=== PATIENT | male | born 1990 | race Caucasian/White ===

== ENCOUNTER 2019-09-13 00:55 | Emergency (ER) | payer SELFPAY ==
[2019-09-13] MEDS ORDERED: Ketorolac 15 MG/ML SDV IVPUSH ONE (01:12)
[2019-09-13] MEDS ORDERED: Sodium Chloride 0.9% 2.5 ML Syringe FLUSH PRN (01:12)
[2019-09-13] MEDS ORDERED: Sodium Chloride 0.9% 1,000 ML IV ONE (01:12)
[2019-09-13] MEDS ORDERED: Sodium Chloride 0.9% 10 ML Syringe FLUSH PRN (01:12)
--- NOTE | 2019-09-13 01:16 | EDM.PDOC ---
ED HPI GENERAL MEDICAL PROBLEM - General Chief Complaint: Genitourinary Problem Stated Complaint: KIDNEY STONES Time Seen by Provider: 09/13/19 00:59 - History of Present Illness INITIAL COMMENTS - FREE TEXT/NARRATIVE: History of present illness: 29-year-old male presenting with left high flank/mid posterior thorax pain for the last few hours. No chest pain or difficulty breathing. No cough. No fever. Started at rest and has continued to worsen, now severe. No abdominal pain reported. No dysuria or urinary frequency although he did note when he went to the bathroom prior to coming in his urine appeared darker/more ye llow/more concentrated than usual. No trauma to the back. No heavy lifting. The patient did just recently fly here from [facility] with multiple connections 12 days ago. Review of systems: As per history of present illness and below otherwise all systems reviewed and negative. Past medical history: As per history of present illness and as reviewed below otherwise noncontributory. Cholesterol, not on any medication Surgical history: As per history of present illness and as reviewed below otherwise noncontributory. Social history: No reported history of drug abuse. Occasional alcohol. Daily tobacco. Family history: As per history of present illness and as reviewed below otherwise noncontributory. Physical exam: GEN: no acute distress, well appearing HEENT: Atraumatic, normocephalic, mucous membranes moist, Neck: supple, nontender, trachea midline. Lungs: No respiratory distress. Heart: RRR Abdomen: Soft, nondistended, nontender. Back: High left CVA/posterior rib tenderness. No crepitus. No midline tenderness. Extremities: Atraumatic. Neurovascularly intact. Neuro: Awake, alert, oriented. Neuro Exam nonfocal. Skin: warm, dry, no lesions Diagnostics: [] Therapeutics: [] MDM: Impression: [] Plan: [] Definitive disposition and diagnosis as appropriate pending reevaluation and review of above. Left Back Pain Score (Numeric/FACES): 7 - Related Data Allergies Allergy/AdvReac Type Severity Reaction Status Date / Time No Known Allergies Allergy Verified 09/13/19 01:08 Home Meds: Home Meds Amoxicillin/Potassium Clav [Augmentin 875-125 Tablet] 1 each PO BID #20 tablet 09/13/19 [Rx] Azithromycin [Zithromax] 250 mg PO DAILY #6 tab 09/13/19 [Rx] Ibuprofen 600 mg PO Q8H #30 tablet 09/13/19 [Rx] ED ROS GENERAL - Review of Systems Review Of Systems: See Below (See HPI) ED EXAM, GENERAL - Physical Exam Exam: See Below (See HPI) EKG INTERPRETATION EKG Interpretation Comments: EKG performed at 1:20 AM, sinus rhythm, no acute ischemia, no STEMI. Interpreted by me Course - Vital Signs Text/Narrative:: Differential diagnosis: Flank pain, renal stone, UTI, pneumonia, ACS: Less likely. Low risk for PE/DVT, however patient did recently take long trip, travel from [facility]. D-dimer negative. Troponin negative. Labs unremarkable except for slightly elevated white count. CT angio of the chest was performed as well as CT abdomen/pelvis with IV contrast no pneumothorax, pulmonary embolism, dissection, or intra-abdominal pathology, however there was a focalized area of possibly inflammation/infiltrate versus lung mass in the left lower lobe/posterior thorax, consistent with the patient's location of pain. Per radiology recommendations, patient needs repeat CT scan in 3 months. Patient relatively low risk for mass/cancer etiology, however he is a heavy daily smoker. I did discuss all of this directly with the patient as well as the extreme importance of repeat CT scan within 3 months. He agrees to do so. Also after our discussion, he agrees to attempt to quit smoking. Patient has remained comfortable on multiple reassessments without any hypoxia. Stable for outpatient treatment. Last Recorded V/S: Last Vital Signs Temp 97.8 F 09/13/19 01:08 Pulse 81 09/13/19 01:08 Resp 20 09/13/19 01:08 BP 148/98 H 09/13/19 01:08 Pulse Ox 98 09/13/19 01:08 - Orders/Labs/Meds Orders: Active Orders 24 hr Category Date Time Status EKG Documentation Completion [RC] STAT Care 09/13/19 01:12 Active Sodium Chloride 0.9% [Saline Flush] Med 09/13/19 01:12 Active 10 ml FLUSH ASDIRECTED PRN Sodium Chloride 0.9% [Saline Flush] Med 09/13/19 01:12 Active 2.5 ml FLUSH ASDIRECTED PRN Saline Lock Insert [OM.PC] Stat Oth 09/13/19 01:12 Ordered Medication Orders Sodium Chloride (Saline Flush) 10 ml FLUSH ASDIRECTED PRN PRN Reason: Keep Vein Open Sodium Chloride (Saline Flush) 2.5 ml FLUSH ASDIRECTED PRN PRN Reason: Keep Vein Open Labs: Laboratory Tests 09/13/19 09/13/19 09/13/19 Range/Units 01:22 01:22 01:22 WBC 12.97 H (4.0-11.0) K/uL RBC 4.91 (4.50-5.90) M/uL Hgb 15.1 (13.0-17.0) g/dL Hct 42.9 (38.0-50.0) % MCV 87.4 (80.0-98.0) fL MCH 30.8 (27.0-32.0) pg MCHC 35.2 (31.0-37.0) g/dL RDW Std Deviation 38.8 (28.0-62.0) fl RDW Coeff of Alejandrina 12 (11.0-15.0) % Plt Count 221 (150-400) K/uL MPV 11.10 (7.40-12.00) fL Neut % (Auto) 67.5 (48.0-80.0) % Lymph % (Auto) 19.6 (16.0-40.0) % [place] % (Auto) 8.8 (0.0-15.0) % Eos % (Auto) 3.9 (0.0-7.0) % Baso % (Auto) 0.2 (0.0-1.5) % Neut # (Auto) 8.8 H (1.4-5.7) K/uL Lymph # (Auto) 2.5 H (0.6-2.4) K/uL [place] # (Auto) 1.1 H (0.0-0.8) K/uL Eos # (Auto) 0.5 (0.0-0.7) K/uL Baso # (Auto) 0.0 (0.0-0.1) K/uL D-Dimer, Quantitative 0.27 (0.0-0.50) mg/L FEU Sodium 139 (136-148) mmol/L Potassium 3.2 L (3.5-5.1) mmol/L Chloride 100 (98-107) mmol/L Carbon Dioxide 28.0 (21.0-32.0) mmol/L BUN 16 (7.0-18.0) mg/dL Creatinine 0.9 (0.8-1.3) mg/dL Est Cr Clr Drug Dosing 108.30 mL/min Estimated GFR (MDRD) > 60.0 ml/min Glucose 108 H (74-106) mg/dL Calcium 9.3 (8.5-10.1) mg/dL Total Bilirubin 0.4 (0.2-1.0) mg/dL AST 21 (15-37) IU/L ALT 37 (14-63) IU/L Alkaline Phosphatase 135 H (46-116) U/L Troponin I (0.000-0.056) ng/mL Total Protein 7.7 (6.4-8.2) g/dL Albumin 4.3 (3.4-5.0) g/dL Globulin 3.4 (2.6-4.0) g/dL Albumin/Globulin Ratio 1.3 (0.9-1.6) Urine Color Urine Appearance Urine pH (5.0-8.0) Ur Specific [place] (1.001-1.035) Urine Protein (NEGATIVE) mg/dL Urine Glucose (UA) (NEGATIVE) mg/dL Urine Ketones (NEGATIVE) mg/dL Urine Occult Blood (NEGATIVE) Urine Nitrite (NEGATIVE) Urine Bilirubin (NEGATIVE) Urine Urobilinogen (<2.0) EU/dL Ur Leukocyte Esterase (NEGATIVE) 09/13/19 09/13/19 Range/Units 01:22 01:38 WBC (4.0-11.0) K/uL RBC (4.50-5.90) M/uL Hgb (13.0-17.0) g/dL Hct (38.0-50.0) % MCV (80.0-98.0) fL MCH (27.0-32.0) pg MCHC (31.0-37.0) g/dL RDW Std Deviation (28.0-62.0) fl RDW Coeff of Alejandrina (11.0-15.0) % Plt Count (150-400) K/uL MPV (7.40-12.00) fL Neut % (Auto) (48.0-80.0) % Lymph % (Auto) (16.0-40.0) % [place] % (Auto) (0.0-15.0) % Eos % (Auto) (0.0-7.0) % Baso % (Auto) (0.0-1.5) % Neut # (Auto) (1.4-5.7) K/uL Lymph # (Auto) (0.6-2.4) K/uL [place] # (Auto) (0.0-0.8) K/uL Eos # (Auto) (0.0-0.7) K/uL Baso # (Auto) (0.0-0.1) K/uL D-Dimer, Quantitative (0.0-0.50) mg/L FEU Sodium (136-148) mmol/L Potassium (3.5-5.1) mmol/L Chloride (98-107) mmol/L Carbon Dioxide (21.0-32.0) mmol/L BUN (7.0-18.0) mg/dL Creatinine (0.8-1.3) mg/dL Est Cr Clr Drug Dosing mL/min Estimated GFR (MDRD) ml/min Glucose (74-106) mg/dL Calcium (8.5-10.1) mg/dL Total Bilirubin (0.2-1.0) mg/dL AST (15-37) IU/L ALT (14-63) IU/L Alkaline Phosphatase (46-116) U/L Troponin I < 0.050 (0.000-0.056) ng/mL Total Protein (6.4-8.2) g/dL Albumin (3.4-5.0) g/dL Globulin (2.6-4.0) g/dL Albumin/Globulin Ratio (0.9-1.6) Urine Color YELLOW Urine Appearance CLOUDY Urine pH 7.5 (5.0-8.0) Ur Specific [place] 1.025 (1.001-1.035) Urine Protein NEGATIVE (NEGATIVE) mg/dL Urine Glucose (UA) NEGATIVE (NEGATIVE) mg/dL Urine Ketones TRACE H (NEGATIVE) mg/dL Urine Occult Blood NEGATIVE (NEGATIVE) Urine Nitrite NEGATIVE (NEGATIVE) Urine Bilirubin NEGATIVE (NEGATIVE) Urine Urobilinogen 0.2 (<2.0) EU/dL Ur Leukocyte Esterase NEGATIVE (NEGATIVE) Meds: Medications Generic Name Dose Route Start Last Admin Trade Name Freq PRN Reason Stop Dose Admin Sodium Chloride 10 ml 09/13/19 01:12 Saline Flush FLUSH ASDIRECTED PRN Keep Vein Open Sodium Chloride 2.5 ml 09/13/19 01:12 Saline Flush FLUSH ASDIRECTED PRN Keep Vein Open Discontinued Medications Generic Name Dose Route Start Last Admin Trade Name Dorian PRN Reason Stop Dose Admin Azithromycin 500 mg 09/13/19 03:28 09/13/19 03:47 Zithromax PO 09/13/19 03:29 500 mg ONETIME ONE Administration Sodium Chloride 1,000 mls @ 999 mls/hr 09/13/19 01:12 09/13/19 01:35 Normal Saline IV 09/13/19 02:12 999 mls/hr .Bolus ONE Administration Ceftriaxone Sodium/Dextrose 1 50 mls @ 100 mls/hr 09/13/19 03:28 09/13/19 03:47 gm/ Premix IV 09/13/19 03:57 100 mls/hr ONETIME ONE Administration Iopamidol 75 ml 09/13/19 03:22 09/13/19 03:24 Isovue-370 (76%) IVPUSH 09/13/19 03:23 75 ml ONETIME STA Administration Ketorolac Tromethamine 15 mg 09/13/19 01:12 09/13/19 01:35 Toradol IVPUSH 09/13/19 01:13 15 mg ONETIME ONE Administration - Re-Assessments/Exams Free Text/Narrative Re-Assessment/Exam: 09/13/19 02:14 I reassessed the patient. He is feeling better. He reports his pain is improved. Discussed available lab results at this time. Will perform CT scan. 09/13/19 04:00 I reassessed the patient. He is resting comfortably in no acute distress. Discussed CT scan results, particularly the thoracic CT results which show possible atypical pneumonia versus mass. The patient is a smoker. We did discuss the possibility of cancer and the need for repeat CT scan testing in 3 months. He will still be in this area 3 months from now and agrees to follow-up to obtain repeat CT imaging. Departure - Departure Time of Disposition: 05:01 Disposition: Home, Self-Care 01 Clinical Impression: Pneumonia Qualifiers: Laterality: left Lung location: lower lobe of lung - Discharge Information Prescriptions: Amoxicillin/Potassium Clav [Augmentin 875-125 Tablet] 1 each PO BID #20 tablet Ibuprofen 600 mg PO Q8H #30 tablet Azithromycin [Zithromax] 250 mg PO DAILY #6 tab Instructions: Steps to Quit Smoking, [id number], Community-Acquired Pneumonia, Adult, [id number] Referrals: PCP,None [Primary Care Provider] - Forms: ED Department Discharge Additional Instructions: Please take the antibiotics until all pills are completed. Return to the emergency room if you develop any worsening symptoms. As we discussed, you will need to have a repeat CT scan done in 3 months to evaluate the pneumonia/mass and make sure that it is resolving or improving. Please call 1 of the clinics listed below to be scheduled a follow-up visit to assist with repeating the CT scan. Please try to stop smoking. The following information is given to patients seen in the emergency department who are being discharged to home. This information is to outline your options for follow-up care. We provide all patients seen in our emergency department with a follow-up referral. The need for follow-up, as well as the timing and circumstances, are variable depending upon the specifics of your emergency department visit. If you don't have a primary care physician on staff, we will provide you with a referral. We always advise you to contact your personal physician following an emergency department visit to inform them of the circumstance of the visit and for follow-up with them and/or the need for any referrals to a consulting specialist. The emergency department will also refer you to a specialist when appropriate. This referral assures that you have the opportunity for follow-up care with a specialist. All of these measure are taken in an effort to provide you with optimal care, which includes your follow-up. Under all circumstances we always encourage you to contact your private physician who remains a resource for coordinating your care. When calling for follow-up care, please make the office aware that this follow-up is from your recent emergency room visit. If for any reason you are refused follow-up, please contact the [facility] Emergency Department at and asked to speak to the emergency department charge nurse. [facility] - Primary Care [address] [place] [id number] [facility] [address] [place] [id number] Sepsis Event Note (ED) - Evaluation Sepsis Screening Result: No Definite Risk - Focused Exam Vital Signs: Vital Signs Temp Pulse Resp BP Pulse Ox 09/13/19 01:08 97.8 F 81 20 148/98 H 98 - My Orders Last 24 Hours: My Active Orders 09/13/19 01:12 EKG Documentation Completion [RC] STAT Sodium Chloride 0.9% [Saline Flush] 10 ml FLUSH ASDIRECTED PRN Sodium Chloride 0.9% [Saline Flush] 2.5 ml FLUSH ASDIRECTED PRN Saline Lock Insert [OM.PC] Stat - Assessment/Plan Last 24 Hours: My Active Orders 09/13/19 01:12 EKG Documentation Completion [RC] STAT Sodium Chloride 0.9% [Saline Flush] 10 ml FLUSH ASDIRECTED PRN Sodium Chloride 0.9% [Saline Flush] 2.5 ml FLUSH ASDIRECTED PRN Saline Lock Insert [OM.PC] Stat
[2019-09-13 01:52] LABS: BLOOD UREA NITROGEN,BUN 16 mg/dL (7.0-18.0); CHLORIDE,CL 100 mmol/L (98-107); GLUCOSE RANDOM 108 mg/dL (74-106); POTASSIUM,K 3.2 mmol/L (3.5-5.1); SODIUM,NA 139 mmol/L (136-148)
--- NOTE | 2019-09-13 02:02 | CR ---
INDICATION: Left posterior chest pain COMPARISON: None TECHNIQUE: Frontal and lateral views of the chest FINDINGS: The lungs are clear. There is no pleural effusion or pneumothorax. The cardiomediastinal silhouette is normal. The osseous structures are unremarkable. IMPRESSION: No acute intrathoracic process. Dictated by Kimberly Brwon MD @ Sep 13 2019 1:59AM Signed by Dr. Kimberly Brown @ Sep 13 2019 1:59AM
[2019-09-13] MEDS ORDERED: Iopamidol 755 Mg/ML 100 ML Bottle IVPUSH STA (03:22)
--- NOTE | 2019-09-13 03:22 | CT ---
INDICATION: Left costovertebral angle/posterior thoracic pain COMPARISON: None TECHNIQUE: Contrast enhanced axial CT imaging through the chest, optimized for assessment of the pulmonary arterial tree. 75 mL Isovue 370 contrast agent was administered intravenously. Sagittal and coronal reconstructions are provided. FINDINGS: There is adequate opacification of the pulmonary arterial tree without evidence of thromboembolism. The main pulmonary artery is nondilated. The heart is non enlarged. There is no pericardial effusion. There is normal caliber of the thoracic aorta. There is no mediastinal lymphadenopathy. In the posterior medial left lower lobe, there is an approximately 4 cm round irregular focal opacity, most likely representing infiltrate the left upper lobe and right lung are clear. There is no pleural effusion or pneumothorax. The thoracic osseous structures are unremarkable. IMPRESSION: 1. Rounder irregular opacity in the posteromedial left lower lobe, most likely representing atypical infiltrate. Solid mass is considered less likely. Follow-up CT is recommended in 3 months. Otherwise, biopsy could be considered. 2. No evidence of pulmonary thromboembolism. Please note that all CT scans at this facility use dose modulation, iterative reconstruction, and/or weight-based dosing when appropriate to reduce radiation dose to as low as reasonably achievable. Dictated by Kimberly Brown MD @ Sep 13 2019 3:02AM Signed by Dr. Kimberly Brown @ Sep 13 2019 3:21AM
[2019-09-13] MEDS ORDERED: cefTRIAXone 1 GM in Premix Bag 1 BAG IV ONE (03:28)
[2019-09-13] MEDS ORDERED: Azithromycin 250 MG Tab PO ONE (03:28)
--- NOTE | 2019-09-13 03:32 | CT ---
Indication: Left CVA/posterior thoracic pain Technique: Contrast enhanced axial CT imaging through the abdomen and pelvis. 75 mL Isovue 370 contrast agent was administered intravenously. Sagittal and coronal reconstructions are provided. Comparison: None Findings: There is no significant abnormality of the liver, gallbladder, spleen, pancreas, adrenal glands, and kidneys. The portal vein and IVC are patent. There is normal caliber of the abdominal aorta. There is no abdominal lymphadenopathy. The stomach and duodenum are unremarkable. There are no abnormally dilated small bowel loops. The appendix is noninflamed. There is no colonic wall thickening. No inflammatory changes are demonstrated in the mesentery. There is no free intraperitoneal fluid or air. The osseous structures are unremarkable. Impression: No acute process demonstrated in the abdomen and pelvis. Please note that all CT scans at this facility use dose modulation, iterative reconstruction, and/or weight-based dosing when appropriate to reduce radiation dose to as low as reasonably achievable. Dictated by Kimberly Brown MD @ Sep 13 2019 3:15AM Signed by Dr. Kimberly Brown @ Sep 13 2019 3:30AM
== END 2019-09-13 05:12 | disposition home or self-care (01) ==
LOC: MW.ED 00:55
DX: J18.9 Pneumonia, unspecified organism (principal)
CPT/HCPCS: 36415; 71046; 71275; 74177; 80053; 81003; 84484; 85025; 85379; 93005; 96365; 96375; 99284; A9270; J0696; J1885; J7030; Q9967

== ENCOUNTER 2019-09-17 11:42 | Emergency (ER) | payer OTHER ==
[2019-09-17] MEDS ORDERED: Ketorolac 30 MG/ML SDV IVPUSH ONE (12:05)
--- NOTE | 2019-09-17 12:09 | EDM.PDOC ---
ED HPI GENERAL MEDICAL PROBLEM - General Chief Complaint: Back Pain or Injury Stated Complaint: BACK PAIN WEAKNESS SOB Time Seen by Provider: 09/17/19 11:46 - History of Present Illness INITIAL COMMENTS - FREE TEXT/NARRATIVE: 29-year-old male with [id number] smoking history who is presenting with persistent posterior chest discomfort. Patient was initially seen for this 4 days ago. At that time he had CT abdomen pelvis CT Angiovist chest CT Georgette of the chest revealed a potential early infiltrate at the left base versus mass. Patient was started on azithromycin and Augmentin was given ibuprofen for symptoms and discharge. He reports that since that time he has had persistent left posterior chest pain that worsens with deep breaths that worsens with movement and in particular with any type of heavy lifting. He reports a mild nonproductive cough and shortness of breath he has nighttime chills and subjective fevers. He did recently travel here from [facility] no known sick contacts. No exertional chest pain no lower extremity pain or swelling. No abdominal pain no flank pain. The pain does not radiate back Pain Score (Numeric/FACES): 3 - Related Data Allergies Allergy/AdvReac Type Severity Reaction Status Date / Time No Known Allergies Allergy Verified 09/17/19 11:57 Home Meds: Home Meds Amoxicillin/Potassium Clav [Augmentin 875-125 Tablet] 1 each PO BID #20 tablet 09/13/19 [Rx] RX: Azithromycin [Zithromax] 250 mg PO DAILY #6 tab 09/13/19 [Rx] RX: Ibuprofen 600 mg PO Q8H #30 tablet 09/13/19 [Rx] Past Medical History Cardiovascular History: Reports: High Cholesterol Other Cardiovascular History: states when he was 11years old he had "heart pain- valve was reversed and MD states to hold breath with this occured" Other Musculoskeletal History: broken wrist x 2, broken pelvis with sx - Infectious Disease History Infectious Disease History: Reports: Chicken Pox Social & Family History - Family History Family Medical History: Noncontributory - Tobacco Use Smoking Status *Q: Current Every Day Smoker Years of Tobacco use: 16 Packs/Tins Daily: 1 - Caffeine Use Caffeine Use: Reports: None - Recreational Drug Use Recreational Drug Use: No ED ROS GENERAL - Review of Systems Review Of Systems: See Below Free Text/Narrative/Comment: General: Per HPI Skin: No rash. Eyes: No vision problems. ENT: No sore throat. Neck: No neck stiffness. Respiratory: Per HPI Cardiac: Per HPI Gastrointestinal: No nausea, vomiting or abdominal pain. Urinary: No dysuria. Musculoskeletal: No myalgias/arthralgias. Neurologic: No headache. ED EXAM, GENERAL - Physical Exam Exam: See Below Free Text/Narrative:: General Appearance: No acute distress, appears comfortable Skin: No rash HEENT: Normocephalic/atraumatic, sclera anicteric, mucous membranes moist Neck: Normal range of motion Chest and Lungs: Bilateral breath sounds, clear to auscultation Cardiovascular: Regular rate and rhythm, no murmur Abdomen: Soft, non-tender Back: Normal, no midline tenderness, tenderness over the inferior border of the left scapula and down over the thoracic musculature of the back no palpable mass or underlying crepitus Musculoskeletal: No edema or tenderness Neurologic: Awake, alert, no obvious deficits, moving all extremities Psychiatric: Appropriate, cooperative Course - Vital Signs Last Recorded V/S: Last Vital Signs Temp 97.6 F 09/17/19 11:57 Pulse 91 09/17/19 11:57 Resp 17 09/17/19 11:57 BP 127/90 09/17/19 11:57 Pulse Ox 98 09/17/19 11:57 - Orders/Labs/Meds Orders: Active Orders 24 hr Category Date Time Status Chest 2V [CR] Stat Exams 09/17/19 12:04 Taken Labs: Laboratory Tests 09/17/19 09/17/19 09/17/19 Range/Units 12:30 12:30 13:04 WBC 8.81 (4.0-11.0) K/uL RBC 5.37 (4.50-5.90) M/uL Hgb 16.3 (13.0-17.0) g/dL Hct 47.6 (38.0-50.0) % MCV 88.6 (80.0-98.0) fL MCH 30.4 (27.0-32.0) pg MCHC 34.2 (31.0-37.0) g/dL RDW Std Deviation 41.3 (28.0-62.0) fl RDW Coeff of Alejandrina 13 (11.0-15.0) % Plt Count 251 (150-400) K/uL MPV 11.50 (7.40-12.00) fL Neut % (Auto) 66.6 (48.0-80.0) % Lymph % (Auto) 21.3 (16.0-40.0) % Overton % (Auto) 7.8 (0.0-15.0) % Eos % (Auto) 3.6 (0.0-7.0) % Baso % (Auto) 0.7 (0.0-1.5) % Neut # (Auto) 5.9 H (1.4-5.7) K/uL Lymph # (Auto) 1.9 (0.6-2.4) K/uL Overton # (Auto) 0.7 (0.0-0.8) K/uL Eos # (Auto) 0.3 (0.0-0.7) K/uL Baso # (Auto) 0.1 (0.0-0.1) K/uL Nucleated RBC % 0.0 /100WBC Nucleated RBCs # 0 K/uL Sodium 137 (136-148) mmol/L Potassium 4.3 (3.5-5.1) mmol/L Chloride 101 (98-107) mmol/L Carbon Dioxide 26.7 (21.0-32.0) mmol/L BUN 21 H (7.0-18.0) mg/dL Creatinine 1.0 (0.8-1.3) mg/dL Est Cr Clr Drug Dosing 97.47 mL/min Estimated GFR (MDRD) > 60.0 ml/min Glucose 106 (74-106) mg/dL Calcium 10.1 (8.5-10.1) mg/dL Total Bilirubin 0.4 (0.2-1.0) mg/dL AST 19 (15-37) IU/L ALT 36 (14-63) IU/L Alkaline Phosphatase 127 H (46-116) U/L Total Protein 8.6 H (6.4-8.2) g/dL Albumin 4.4 (3.4-5.0) g/dL Globulin 4.2 H (2.6-4.0) g/dL Albumin/Globulin Ratio 1.1 (0.9-1.6) COVID-19 (KRISTOFER) NEGATIVE (NEGATIVE) Meds: Medications Discontinued Medications Generic Name Dose Route Start Last Admin Trade Name Freq PRN Reason Stop Dose Admin Ketorolac Tromethamine 30 mg 09/17/19 12:05 09/17/19 12:28 Toradol IVPUSH 09/17/19 12:06 30 mg ONETIME ONE Administration Departure - Departure Time of Disposition: 14:03 Disposition: Home, Self-Care 01 Condition: Good Clinical Impression: Pleurisy - Discharge Information *PRESCRIPTION DRUG MONITORING PROGRAM REVIEWED*: Not Applicable *COPY OF PRESCRIPTION DRUG MONITORING REPORT IN PATIENT MARGAUX: Not Applicable Instructions: Pleurisy, [id number] Referrals: [facility] [Outside] Forms: ED Department Discharge Additional Instructions: For the next 5 days please take 1-1/2 tablets of the 600 mg ibuprofen pills every 8 hours with food. Take this on a schedule should help with the inflammation that we think is causing her discomfort. [facility] You should start to feel better in the next couple days. Is also important to follow-up with them to arrange the repeat CT scan of your chest that you will need 3 months from now in order to ensure that you do not have any developing mass in your lung. The following information is given to patients seen in the emergency department who are being discharged to home. This information is to outline your options for follow-up care. We provide all patients seen in our emergency department with a follow-up referral. The need for follow-up, as well as the timing and circumstances, are variable depending upon the specifics of your emergency department visit. If you don't have a primary care physician on staff, we will provide you with a referral. We always advise you to contact your personal physician following an emergency department visit to inform them of the circumstance of the visit and for follow-up with them and/or the need for any referrals to a consulting specialist. The emergency department will also refer you to a specialist when appropriate. This referral assures that you have the opportunity for follow-up care with a specialist. All of these measure are taken in an effort to provide you with optimal care, which includes your follow-up. Under all circumstances we always encourage you to contact your private physician who remains a resource for coordinating your care. When calling for follow-up care, please make the office aware that this follow-up is from your recent emergency room visit. If for any reason you are refused follow-up, please contact the [facility] at and asked to speak to the emergency department charge nurse. Sepsis Event Note (ED) - Evaluation Sepsis Screening Result: No Definite Risk - Focused Exam Vital Signs: Vital Signs Temp Pulse Resp BP Pulse Ox 09/17/19 11:57 97.6 F 91 17 127/90 98 - My Orders Last 24 Hours: My Active Orders 09/17/19 12:04 Chest 2V [CR] Stat - Assessment/Plan Last 24 Hours: My Active Orders 09/17/19 12:04 Chest 2V [CR] Stat Assessment:: 29-year-old male presenting with nighttime fevers and chills body aches shortness of breath and left posterior chest pain. Worsening pneumonia is a consideration code is a consideration ACS considered but felt unlikely aortic dissection considered but felt very unlikely PE considered. However, he had a negative CT angios only 4 days ago. Given that I think it is unlikely that he is in the interim developed a PE. CBC, CMP, chest x-ray to further assess Toradol for symptoms. Patient's labs are normal symptoms improved with the Toradol. Patient has only been taking the 600 mg of ibuprofen once a day. I do think this is musculoskeletal related to his chest x-ray is without acute abnormality and his white count is normal there is no sign of worsening infective process. Patient will do 1-1/2 tabs of the 600 mg ibuprofen tablets every 8 hours with food for the next 5 days he will take off of work for the next 3 days. Strict return precautions discussed and understood he will follow-up with the [facility] for follow-up care and to make arrangements for the 3-month CT scan.
[2019-09-17 13:07] LABS: BLOOD UREA NITROGEN,BUN 21 mg/dL (7.0-18.0); CARBON DIOXIDE,CO2 26.7 mmol/L (21.0-32.0); CHLORIDE,CL 101 mmol/L (98-107); GLUCOSE RANDOM 106 mg/dL (74-106); POTASSIUM,K 4.3 mmol/L (3.5-5.1); SODIUM,NA 137 mmol/L (136-148)
--- NOTE | 2019-09-17 14:25 | CR ---
Chest: 2 views of the chest were obtained. Comparison: No prior chest x-ray. Heart size and mediastinum are normal. Lungs are clear with no acute parenchymal change. Bony structures are unremarkable. Impression: 1. Nothing acute is seen on 2 view chest x-ray. Diagnostic code #1 Study was dictated in MDT
== END 2019-09-17 14:23 | disposition home or self-care (01) ==
LOC: MW.ED 11:42
DX: R09.1 Pleurisy (principal); Z20.828 Contact with and (suspected) exposure to other viral communicable diseases; F17.210 Nicotine dependence, cigarettes, uncomplicated
CPT/HCPCS: 71046; 80053; 85025; 87635; 96374; 99285; J1885; 99283; U0002